=== PATIENT | male | born 1965 | race African-American/Black ===

== ENCOUNTER 2017-06-16 15:04 | Emergency (ER) | payer SELFPAY ==
[~2017-06-16] VITALS: Ht 177.8 cm; Wt 90.0 kg
[2017-06-16] MEDS ORDERED: KETOROLAC 60MG/2ML VIAL IM ONE (15:30)
[2017-06-16 18:54] VITALS: BP 115/70
== END 2017-06-16 18:56 | disposition home or self-care (01) ==
LOC: ER 15:16
DX: M25.512 Pain in left shoulder (principal); M25.552 Pain in left hip
CPT/HCPCS: 73030; 73502; 96372; 99284; J1885